=== PATIENT | female | born 1970 | race Caucasian/White ===

== ENCOUNTER 2021-08-17 04:07 | Emergency (ER) | payer OTHER ==
[2021-08-17 04:57] LABS: BASOPHIL 0.3 % (0-2); EOSINOPHIL 0.3 % (0-5); HCT 54.2 % (37.0-47.0); HGB 18.1 g/dl (12.5-16.0); LYMPHOCYTE 3.1 % (15-48); MCH 30.5 pg (25.0-31.0); MCHC 33.4 g/dL (32.0-36.0); MCV 91.4 fL (78.0-100.0); MONOCYTE 6.8 % (0-12); MPV 10.3 fL (6.0-9.5); NRBC 0; PLT 338 K/uL (150-400); RBC 5.93 M/uL (4.20-5.40); RDW 11.9 % (11.5-14.0); WBC 14.6 K/uL (4.0-10.5)
[2021-08-17 05:45] LABS: ALBUMIN 5.5 g/dL (3.4-5.0); ALKALINE PHOSHATASE 82 U/L (46-116); ALT 46 U/L (14-59); AST 22 U/L (15-37); BILIRUBIN - TOTAL 0.4 mg/dL (0.2-1.0); BUN 26 mg/dL (7-18); BUN/CREAT RATIO (CALC) 15.8 RATIO; CHLORIDE 98 mmol/L (98-107); CO2 (BICARBONATE) 28 mmol/L (21-32); CREATININE 1.65 mg/dL (0.51-0.95); GLOBULIN (CALCULATION) 4.2 g/dL; GLUCOSE 174 mg/dL (74-106); LIPASE 201 U/L (73-393); MAGNESIUM 2.2 mg/dL (1.8-2.4); POTASSIUM 4.2 mmol/L (3.5-5.1); TOTAL PROTEIN 9.7 g/dL (6.4-8.2)
[2021-08-17 06:08] LABS: CORONAVIRUS 2019 SARS-COV-2 NEGATIVE (NEGATIVE); INFLUENZA A NAA NEGATIVE (NEGATIVE)
[2021-08-17 06:12] LABS: BILIRUBIN 2+ mg/dL (NEGATIVE); BLOOD NEGATIVE Ery/uL (NEGATIVE); CLARITY CLEAR (CLEAR); COLOR YELLOW (YELLOW); GLUCOSE (U) NORMAL (NORMAL); LEUKOCYTES NEGATIVE Leu/uL (NEGATIVE); NITRITE NEGATIVE (NEGATIVE); PROTEIN 1+ mg/dL (NEGATIVE); SPECIFIC GRAVITY >=1.030 (1.001-1.030); UROBILINOGEN 0.2 mg/dL (0.2-1.0)
[2021-08-17] MEDS ORDERED: ONDANSETRON ODT4 MG PO (06:14)
[2021-08-17] MEDS ORDERED: PROMETHEGA12.5 MG/SU PR (06:14)
[2021-08-17 06:15] LABS: BACTERIA 2+
[2021-08-17 06:18] LABS: CALCIUM OXALATE CRYSTALS TRACE; TRANSITIONAL EPITHELIAL CELLS RARE
== END 2021-08-17 09:37 | disposition home or self-care (01) ==
LOC: FER 04:07
PROVIDERS: Internal Medicine
DX: K52.9 Noninfective gastroenteritis and colitis, unspecified (principal); N17.9 Acute kidney failure, unspecified; E86.0 Dehydration; I10 Essential (primary) hypertension; Z79.899 Other long term (current) drug therapy; Z20.822 Contact with and (suspected) exposure to COVID-19
CPT/HCPCS: 36415; 80053; 81001; 83690; 83735; 84145; 84484; 85025; 93005; J2405; J3475; J7030; U0002

== ENCOUNTER 2021-08-20 10:02 | Emergency (ER) | payer OTHER ==
[~2021-08-20 10:02] MED LIST: ONDANSETRON ODT4 MG PO; PROMETHEGA12.5 MG/SU PR
[2021-08-20 11:54] LABS: BASOPHIL 0.6 % (0-2); HCT 45.7 % (37.0-47.0); HGB 15.8 g/dl (12.5-16.0); LYMPHOCYTE 23.7 % (15-48); MCHC 34.6 g/dL (32.0-36.0); MCV 89.6 fL (78.0-100.0); MONOCYTE 12.2 % (0-12); MPV 9.9 fL (6.0-9.5); NEUTROPHIL 61.9 % (41-80); NRBC 0; PLT 286 K/uL (150-400); RDW 11.7 % (11.5-14.0); WBC 5.2 K/uL (4.0-10.5)
[2021-08-20 12:10] LABS: BILIRUBIN NEGATIVE (NEGATIVE); BLOOD TRACE-INTACT Ery/uL (NEGATIVE); CLARITY CLEAR (CLEAR); COLOR YELLOW (YELLOW); GLUCOSE (U) NORMAL (NORMAL); LEUKOCYTES NEGATIVE Leu/uL (NEGATIVE); NITRITE NEGATIVE (NEGATIVE); PROTEIN NEGATIVE (NEGATIVE); SPECIFIC GRAVITY >=1.030 (1.001-1.030); UROBILINOGEN 0.2 mg/dL (0.2-1.0); pH 5.5 (5.0-9.0)
[2021-08-20 12:14] LABS: ALBUMIN 4.2 g/dL (3.4-5.0); ALKALINE PHOSHATASE 59 U/L (46-116); ALT 42 U/L (14-59); AST 34 U/L (15-37); BILIRUBIN - TOTAL 0.6 mg/dL (0.2-1.0); BUN 10 mg/dL (7-18); BUN/CREAT RATIO (CALC) 10.3 RATIO; CHLORIDE 100 mmol/L (98-107); CO2 (BICARBONATE) 23 mmol/L (21-32); CREATININE 0.97 mg/dL (0.51-0.95); GLOBULIN (CALCULATION) 4.2 g/dL; GLUCOSE 101 mg/dL (74-106); LIPASE 173 U/L (73-393); POTASSIUM 4.1 mmol/L (3.5-5.1); TOTAL PROTEIN 8.4 g/dL (6.4-8.2)
[2021-08-20 13:26] LABS: CORONAVIRUS 2019 SARS-COV-2 NEGATIVE (NEGATIVE); INFLUENZA A NAA NEGATIVE (NEGATIVE)
[2021-08-20 13:30] LABS: BACTERIA TRACE; MUCOUS TRACE
== END 2021-08-20 14:27 | disposition home or self-care (01) ==
LOC: FER 10:02
PROVIDERS: Internal Medicine
DX: R11.2 Nausea with vomiting, unspecified (principal); R19.7 Diarrhea, unspecified; Z20.822 Contact with and (suspected) exposure to COVID-19
CPT/HCPCS: 36415; 80053; 81001; 83690; 84145; 84484; 85025; 87045; 87046; 87088; 93005; J7030; U0002